=== PATIENT | male | born 1990 | race African-American/Black ===

== ENCOUNTER 2022-07-29 01:03 | Emergency (ER) | payer OTHER, SELFPAY | END 2022-07-29 04:02 | disposition home or self-care (01) | LOC: ERS 01:03 | DX: S09.90XA Unspecified injury of head, initial encounter (principal); V49.40XA Driver injured in collision with unspecified motor vehicles in traffic accident, initial encounter | CPT/HCPCS: 70450; 71045; 72125; 74176 ==

== ENCOUNTER 2023-05-31 05:33 | Day surgery (SDC) | payer BC ==
[2023-05-30 12:05] VITALS: BMI 25.2
[2023-05-31] MEDS ORDERED: Midazolam HCl 2 mg/2 ml Vial ONE (06:24)
[2023-05-31] MEDS ORDERED: HYDROmorphone 0.5 MG/0.5 ML SYRINGE ONE ×2 (06:24→09:06)
[2023-05-31] MEDS ORDERED: fentaNYL PF 100 MCG/2 ML SYRINGE ONE (06:24)
[2023-05-31] MEDS ORDERED: Sodium Chloride 0.9% 100 ML ONE (06:27)
[2023-05-31] MEDS ORDERED: CEFAZOLIN 2 GM VIAL ONE (06:27)
[2023-05-31] MEDS ORDERED: Lidocaine 1% PF 5 ML VIAL ONE (06:29)
[2023-05-31] MEDS ORDERED: Ondansetron PF 4 MG/2 ML Vial ONE (06:29)
[2023-05-31] MEDS ORDERED: Dexamethasone 4 mg/ml Vial ONE (06:29)
[2023-05-31] MEDS ORDERED: PROPOFOL 20 ML ONE (06:31)
[2023-05-31] MEDS ORDERED: Bacitracin Zinc Ointment 30 gm TUBE ONE (06:39)
[2023-05-31] MEDS ORDERED: Bupivacaine PF 0.5% 30 ML VIAL ONE (06:39)
[2023-05-31] MEDS ORDERED: PHENYLEPHRINE-NS 100 MCG/ML 10 ML SYRINGE ONE (08:01)
[2023-05-31] MEDS ORDERED: ePHEDrine Sulfate 50 MG/10 ML VIAL ONE (08:16)
[2023-05-31] MEDS ORDERED: Ketorolac Tromethamine 30 MG (1 mL) VIAL ONE (08:51)
[2023-05-31] MEDS ORDERED: HYDROcodone/Acetaminophen 5/325 mg Tablet ONE (10:00)
== END 2023-05-31 10:21 | disposition home or self-care (01) ==
LOC: SDC 05:33 → EEVIPCON 05:33 → SDC 10:21
PROVIDERS: ATTEND Orthopaedic Surgery Hand Surgery
PROC: 0RGU0JZ Fusion of Right Metacarpophalangeal Joint with Synthetic Substitute, Open Approach (ICD-10-PCS; principal; 2023-05-31)
DX: S62.501A Fracture of unspecified phalanx of right thumb, initial encounter for closed fracture (principal); M19.141 Post-traumatic osteoarthritis, right hand; S52.351A Displaced comminuted fracture of shaft of radius, right arm, initial encounter for closed fracture; S52.352A Displaced comminuted fracture of shaft of radius, left arm, initial encounter for closed fracture; S62.232A Other displaced fracture of base of first metacarpal bone, left hand, initial encounter for closed fracture; S32.302A Unspecified fracture of left ilium, initial encounter for closed fracture; Z87.891 Personal history of nicotine dependence; Z79.899 Other long term (current) drug therapy; W34.00XA Accidental discharge from unspecified firearms or gun, initial encounter
CPT/HCPCS: C1894; J0665; J1100; J1170; J1885; J2250; J2405; J2704; J3490

== ENCOUNTER 2023-11-05 08:09 | Day surgery (SDC) | payer BC ==
[2023-11-04 12:47] VITALS: BMI 23.0
[2023-11-05 09:12] LABS: #Basophils Less than 0.03 10x3/uL (0.0-0.2); %Basophils 0.6 % (0.0-1.0); %Lymphocytes 41.6 % (21.0-51.0); %Monocytes 9.8 % (0.0-10.0); %Neutrophils 40.7 % (42.0-75.0); Hematocrit 40.4 % (42.0-52.0); Mean Corpuscular HGB CONC 34.7 g/dL (32.0-36.0); Mean Corpuscular Hemoglobin 32.6 pg (27.0-31.0); Mean Corpuscular Volume 94.2 fL (78.0-98.0); Mean Platelet Volume 9.7 fL (7.4-10.4); Platelet Count 188 10x3/uL (130-400); RBC Distribution Width 11.1 % (11.5-14.5); Red Blood Cell (RBC) Count 4.29 mill/uL (4.70-6.10)
[2023-11-05] MEDS ORDERED: fentaNYL 50 mcg/mL 1 mL Vial ONE (09:37)
[2023-11-05] MEDS ORDERED: Midazolam HCl 2 mg/2 ml Vial ONE (09:37)
[2023-11-05] MEDS ORDERED: Bupivacaine PF 0.5% 30 ML VIAL ONE (09:37)
[2023-11-05] MEDS ORDERED: Bacitracin Zinc Ointment 30 gm TUBE ONE (09:44)
[2023-11-05] MEDS ORDERED: Bupivacaine HCl 0.5%/Epinephrine 1:200,000/PF 30 ml Vial ONE (09:50)
[2023-11-05] MEDS ORDERED: CEFAZOLIN 2 GM VIAL ONE (09:56)
[2023-11-05] MEDS ORDERED: Sodium Chloride 0.9% 100 ML ONE (09:56)
[2023-11-05] MEDS ORDERED: fentaNYL PF 100 MCG/2 ML SYRINGE ONE (10:07)
[2023-11-05] MEDS ORDERED: Lidocaine 2% PF 5 ML VIAL ONE (10:07)
[2023-11-05] MEDS ORDERED: PROPOFOL 20 ML ONE (10:07)
[2023-11-05] MEDS ORDERED: Ondansetron PF 4 MG/2 ML Vial ONE (10:23)
[2023-11-05] MEDS ORDERED: Dexamethasone 20 MG/5 ML VIAL ONE (10:23)
[2023-11-05] MEDS ORDERED: PHENYLEPHRINE-NS 100 MCG/ML 10 ML SYRINGE ONE (11:07)
[2023-11-05] MEDS ORDERED: ePHEDrine Sulfate 50 MG/10 ML VIAL ONE (11:12)
[2023-11-05] MEDS ORDERED: Ketorolac Tromethamine 30 MG (1 mL) VIAL ONE (13:14)
== END 2023-11-05 14:14 | disposition home or self-care (01) ==
LOC: SDC 08:09
PROVIDERS: ATTEND Orthopaedic Surgery Hand Surgery
PROC: 3E0T3BZ Introduction of Anesthetic Agent into Peripheral Nerves and Plexi, Percutaneous Approach (ICD-10-PCS; principal; 2023-11-05)
PROC: 0LX80ZZ Transfer Left Hand Tendon, Open Approach (ICD-10-PCS; principal; 2023-11-05)
DX: S64.02XA Injury of ulnar nerve at wrist and hand level of left arm, initial encounter (principal); M21.512 Acquired clawhand, left hand; F17.220 Nicotine dependence, chewing tobacco, uncomplicated; Z79.899 Other long term (current) drug therapy; W34.00XA Accidental discharge from unspecified firearms or gun, initial encounter
CPT/HCPCS: 85025; J0665; J1100; J1885; J2001; J2250; J2405; J2704; J3010; J3490

== ENCOUNTER → 2024-03-20 | Outpatient (CLI) | payer BC ==
[2024-03-20 13:23] LABS: #Basophils 0.03 10x3/uL (0.0-0.2); %Basophils 0.7 % (0.0-1.0); %Eosinophils 4.9 % (0.0-10.0); %Lymphocytes 40.4 % (21.0-51.0); %Monocytes 9.9 % (0.0-10.0); %Neutrophils 44.1 % (42.0-75.0); Hematocrit 41.9 % (42.0-52.0); Hemoglobin 14.5 g/dL (14.0-18.0); Mean Corpuscular HGB CONC 34.6 g/dL (32.0-36.0); Mean Corpuscular Hemoglobin 31.8 pg (27.0-31.0); Mean Corpuscular Volume 91.9 fL (78.0-98.0); Mean Platelet Volume 10.1 fL (7.4-10.4); Platelet Count 188 10x3/uL (130-400); RBC Distribution Width 11.1 % (11.5-14.5); Red Blood Cell (RBC) Count 4.56 mill/uL (4.70-6.10)
== END ==
LOC: LABBT 10:00
PROVIDERS: ATTEND Orthopaedic Surgery Hand Surgery
DX: Z01.812 Encounter for preprocedural laboratory examination (principal); T84.84XA Pain due to internal orthopedic prosthetic devices, implants and grafts, initial encounter
CPT/HCPCS: 85025

== ENCOUNTER 2024-03-24 07:49 | Day surgery (SDC) | payer BC ==
[2024-03-20 12:37] VITALS: BMI 29.2
[2024-03-24] MEDS ORDERED: Bacitracin Zinc Ointment 30 gm TUBE ONE (07:52)
[2024-03-24] MEDS ORDERED: Bupivacaine PF 0.5% 30 ML VIAL ONE (07:52)
[2024-03-24] MEDS ORDERED: Lidocaine 1% PF 5 ML VIAL ONE (08:24)
[2024-03-24] MEDS ORDERED: fentaNYL PF 100 MCG/2 ML SYRINGE ONE ×2 (08:24→09:51)
[2024-03-24] MEDS ORDERED: PROPOFOL 20 ML ONE (08:24)
[2024-03-24] MEDS ORDERED: Ketorolac Tromethamine 30 MG (1 mL) VIAL ONE ×2 (08:24→09:38)
[2024-03-24] MEDS ORDERED: Ondansetron PF 4 MG/2 ML Vial ONE (08:24)
[2024-03-24] MEDS ORDERED: CEFAZOLIN 2 GM VIAL ONE (08:39)
[2024-03-24] MEDS ORDERED: Midazolam HCl 2 mg/2 ml Vial ONE (08:43)
== END 2024-03-24 11:00 | disposition home or self-care (01) ==
LOC: SDC 07:49
PROVIDERS: ATTEND Orthopaedic Surgery Hand Surgery
PROC: 2W5 Placement, Anatomical Regions, Removal (ICD-10-PCS; principal; 2024-03-24)
DX: T84.84XA Pain due to internal orthopedic prosthetic devices, implants and grafts, initial encounter (principal); S52.351 Displaced comminuted fracture of shaft of radius, right arm; S52.352B Displaced comminuted fracture of shaft of radius, left arm, initial encounter for open fracture type I or II; S62.232 Other displaced fracture of base of first metacarpal bone, left hand; S62.501D Fracture of unspecified phalanx of right thumb, subsequent encounter for fracture with routine healing; S32.302D Unspecified fracture of left ilium, subsequent encounter for fracture with routine healing; M19.131 Post-traumatic osteoarthritis, right wrist; M19.132 Post-traumatic osteoarthritis, left wrist; M72.0 Palmar fascial fibromatosis [Dupuytren]; M89.70 Major osseous defect, unspecified site; G56.22 Lesion of ulnar nerve, left upper limb; Y83.1 Surgical operation with implant of artificial internal device as the cause of abnormal reaction of the patient, or of later complication, without mention of misadventure at the time of the procedure; Z87.891 Personal history of nicotine dependence; Z98.890 Other specified postprocedural states; W34.00XD Accidental discharge from unspecified firearms or gun, subsequent encounter
CPT/HCPCS: A6223; J0665; J1885; J2250; J2405; J2704

== ENCOUNTER 2024-06-26 22:04 | Emergency (ER) | payer BC, SELFPAY ==
[2024-06-26] MEDS ORDERED: Lidocaine 1% w/Epinephrine 1:100K 20 ML VIAL ONE (22:15)
== END 2024-06-26 23:07 ==
LOC: ERS 22:04
DX: S41.112A Laceration without foreign body of left upper arm, initial encounter (principal); X99.1XXA Assault by knife, initial encounter
CPT/HCPCS: 12001; 99283